=== PATIENT | male | born 1985 | race Native Hawaiian/Other Pacific Islander ===

== ENCOUNTER 2016-04-11 09:34 | Emergency (ER) | payer OTHER ==
[~2016-04-11] VITALS: Ht 185.4 cm; Wt 91.2 kg
[2016-04-11 09:45] VITALS: BP 113/80; TEMP 98
[2016-04-11] MEDS ORDERED: BENZONATATE100 MG PO (10:17)
[2016-04-11] MEDS ORDERED: CEPH500C20 PO (10:17)
== END 2016-04-11 10:20 | disposition home or self-care (01) ==
LOC: ED 09:34
DX: J02.0 Streptococcal pharyngitis (principal); R50.9 Fever, unspecified; J01.90 Acute sinusitis, unspecified
CPT/HCPCS: 99282

== ENCOUNTER 2016-04-29 07:34 | Emergency (ER) | payer OTHER ==
[~2016-04-29] VITALS: Ht 185.4 cm; Wt 91.2 kg
[~2016-04-29 07:34] MED LIST: BENZONATATE100 MG PO; CEPH500C20 PO
[2016-04-29 07:45] VITALS: TEMP 97.7
[2016-04-29 08:42] LABS: PLATELET COUNT 165 K/uL (142-355)
[2016-04-29 08:45] LABS: POTASSIUM 3.7 mmol/L (3.6-5.2); SODIUM 137 mmol/L (136-145)
[2016-04-29 09:15] VITALS: BP 110/76
== END 2016-04-29 09:15 | disposition home or self-care (01) ==
LOC: ED 07:34
PROVIDERS: Emergency Medicine
DX: K52.9 Noninfective gastroenteritis and colitis, unspecified (principal)
CPT/HCPCS: 80053; 80307; 81000; 85027; 87081; 87804; 87880; 96360; 99284; G0479

== ENCOUNTER → 2016-06-17 14:19 | Outpatient (CLI) | payer OTHER | END | disposition short-term general hospital (02) | LOC: AMB 14:19 | DX: S99.822A Other specified injuries of left foot, initial encounter (principal); V09.1XXA Pedestrian injured in unspecified nontraffic accident, initial encounter; Y93.89 Activity, other specified; Y92.89 Other specified places as the place of occurrence of the external cause ==